=== PATIENT | male | born 1960 | race Caucasian/White ===

== ENCOUNTER 2019-05-17 08:13 | Day surgery (SDC) | payer BC ==
[~2019-05-17] VITALS: Ht 185.4 cm; Wt 91.0 kg
[~2019-05-17 08:13] MED LIST: BUPIVACAINE-EPI 0.25%-1:200000 MPF 30 ML VIAL. INJ ONE; HYDROmorphone 2 MG/ML VIAL IV PRN; ONDANSETRON PF 4 MG/2 ML VIAL. IV PRN; PROCHLORPERAZINE 10 MG/2 ML VIAL. IV PRN; fentaNYL PF VIAL 100 MCG/2 ML VIAL IV PRN
[2019-05-17] MEDS ORDERED: ACETAMINOPHEN 500 MG TABLET PO ONE (09:00)
[2019-05-17] MEDS ORDERED: ROCURONIUM 50 MG/5 ML VIAL. ONE ×2 (09:07→10:43)
[2019-05-17] MEDS ORDERED: fentaNYL PF VIAL 250 MCG/5 ML VIAL ONE (09:08)
[2019-05-17] MEDS ORDERED: MIDAZOLAM HCL/PF 2 MG/2 ML VIAL. ONE (09:08)
[2019-05-17] MEDS: IV RINGERS,LACTATED 1000ML 1,000 ML IV SCH ×2 (09:13→12:11)
[2019-05-17] MEDS ORDERED: MINERAL OIL for SURGERY 10 ML VIAL. MC ONE (10:26)
[2019-05-17] MEDS ORDERED: PHENYLEPHRINE in 0.9% NACL PF 1 MG/10 ML SYRINGE. IV ONE (10:43)
[2019-05-17] MEDS ORDERED: ceFAZolin 2GM PREMIX 2 GM/50 ML BAG IV ONE (11:00)
[2019-05-17] MEDS ORDERED: DEXAMETHASONE SOD PHOS 20 MG/5 ML VIAL. ONE (11:14)
[2019-05-17] MEDS ORDERED: LIDOCAINE 2% PF 5 ML VIAL. ONE (11:14)
[2019-05-17] MEDS ORDERED: PROPOFOL 20 ML IV ONE (11:14)
[2019-05-17] MEDS ORDERED: SEVOFLURANE > 120 MINUTES. IH ONE (11:14)
[2019-05-17] MEDS ORDERED: ONDANSETRON PF 4 MG/2 ML VIAL. ONE (11:14)
[2019-05-17] MEDS ORDERED: NEOSTIGMINE METHYLSULFATE 5 MG/5 ML SYRINGE. ONE (11:15)
[2019-05-17] MEDS ORDERED: GLYCOPYRROLATE 1 MG/5 ML VIAL. ONE (11:15)
--- NOTE | 2019-05-17 11:52 | PDOC4 ---
Operative Note Operative Note Date: 05/17/2019 Preoperative diagnosis: Right inguinal hernia Postoperative diagnosis: Right inguinal hernia and left inguinal hernia Procedure: Robotic-assisted laparoscopic bilateral inguinal hernia repairs with mesh Surgeon: Jonathan Specimen: None Dictation: Patient is 58-year-old gentleman is complained of right groin pain and a bulge he had previously had bilateral inguinal hernia repairs as an infant. He does describe some discomfort in the left groin also been never has felt a bulge. Procedure of robotic-assisted laparoscopic inguinal hernia repair with mesh was explained to the patient detail all risks benefits were also discussed including bleeding infection injury to intra-abdominal contents possibly necessitating further or open operations alternatives to this procedure also discussed with patient who seemed to understand and gave both verbal and written consent to have the procedure performed. Patient was taken to the operating room placed in supine position general anesthesia was initiated once patient was asleep and intubated his abdomen was prepped and draped usual sterile fashion using ChloraPrep is also position from supine to low lithotomy. Area just above the umbilicus was injected with quarter percent Marcaine with epinephrine incision was made 11 scalpel varies needle was placed within the abdomen creating pneumoperitoneum once this was complete 8mm da Mariah port was placed and the camera was placed within the abdomen and inspected was noted that he had a right inguinal hernia as well as a left. A 8mm da Mariah port was placed in the left mid abdomen and one in the right mid abdomen and eventually robotic brought in and docked all port sites surgeon went to the robotic console using a grasper and Endo Casey scissors the peritoneum on the right side was opened with electrocautery and a window propagated inferiorly reducing the hernia sac and contents. Similarly the left side was opened with electrocautery and a window propagated inferiorly reducing hernia sac and contents. A Bard 3-D max mesh for the right side was placed over the right inguinal canal and a Bard 3-D max left was placed over the left side the peritoneum was then closed with running 20V lock suture on both sides. Once this was complete the pneumoperitoneum was reduced all ports removed the da Mariah robot was undocked from the ports removed from the operative field. The port sites were all closed with 40 subarticular Monocryl Mastisol Steri-Strips and island dressings were applied. Patient was awakened and extubated in the operating room taken to recovery in stable condition all sponge instrument needle counts listed as correct estimated blood loss 5 mL SHAHRIAR BERNAL MD May 17, 2019 11:52
--- NOTE | 2019-05-17 11:54 | DISCH ---
DISCHARGE INSTRUCTIONS Condition on Discharge Condition on Discharge: Stable Activity After Discharge Activity Instructions for Disc: Avoid exertion Other activity instructions: no lifting more than 20 pounds for 2 weeks Diet after Discharge Diet after Discharge: Regular Wound Incision Care Other wound/incision instructi: May shower in 24 hours Contacting the DRChris after DC Call your doctor for: If your condition worsens Follow-Up Follow up with: Dr. Bernal in 2 weeks SHAHRIAR BERNAL MD May 17, 2019 11:54
[2019-05-17] MEDS ORDERED: CELE200C PO (11:59)
[2019-05-17] MEDS ORDERED: GABA600T7 PO (12:00)
[2019-05-17] MEDS: MORPHINE SULFATE 2 MG/ML VIAL. IV PRN ×2 (12:12→12:24)
[2019-05-17] MEDS: fentaNYL PF VIAL 100 MCG/2 ML VIAL IV PRN ×2 (12:25→12:46)
[2019-05-17] MEDS ORDERED: CELECOXIB 100 MG CAPSULE. ONE (13:22)
[2019-05-17 13:46] VITALS: BP 133/75
[2019-05-17] MEDS ORDERED: GABAPENTIN 300 MG CAPSULE. PO SCH (14:00)
[2019-05-17] MEDS ORDERED: CELECOXIB 100 MG CAPSULE. PO SCH (21:00)
== END 2019-05-17 14:27 | disposition home or self-care (01) ==
LOC: SURG 08:13
PROVIDERS: ATTEND Surgery
DX: K40.90 Unilateral inguinal hernia, without obstruction or gangrene, not specified as recurrent (principal); J44.9 Chronic obstructive pulmonary disease, unspecified; K21.9 Gastro-esophageal reflux disease without esophagitis; F41.9 Anxiety disorder, unspecified; F32.9 Major depressive disorder, single episode, unspecified; Z72.89 Other problems related to lifestyle; Z87.01 Personal history of pneumonia (recurrent); Z98.52 Vasectomy status
CPT/HCPCS: 49650; A7015; C1781; J0696; J0780; J1100; J2001; J2250; J2270; J2370; J2405; J2704; J2710; J3010; J3490; J7120; S2900